=== PATIENT | male | born 1955 | race Caucasian/White ===

== ENCOUNTER 2017-04-14 07:02 | Emergency (ER) | payer OTHER, BC ==
[2017-04-14] MEDS ORDERED: Lidocaine 1% with EPINEPHrine 1:100,000 20 ML MDV INFILT ONE (07:03)
[2017-04-14] MEDS ORDERED: Iopamidol 755 Mg/ML 75 ML Bottle IV ONE (08:52)
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
[2017-04-14 13:51] VITALS: BP 153/68
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
== END 2017-04-14 13:24 | disposition home or self-care (01) ==
LOC: FB.ED 07:02
DX: S06.0X0A Concussion without loss of consciousness, initial encounter (principal); S22.32XA Fracture of one rib, left side, initial encounter for closed fracture; S12.401A Unspecified nondisplaced fracture of fifth cervical vertebra, initial encounter for closed fracture; S12.500A Unspecified displaced fracture of sixth cervical vertebra, initial encounter for closed fracture; S01.81XA Laceration without foreign body of other part of head, initial encounter; I25.2 Old myocardial infarction; F17.210 Nicotine dependence, cigarettes, uncomplicated; Z79.02 Long term (current) use of antithrombotics/antiplatelets; Z79.899 Other long term (current) drug therapy; Z95.5 Presence of coronary angioplasty implant and graft; V89.2XXA Person injured in unspecified motor-vehicle accident, traffic, initial encounter; Y92.410 Unspecified street and highway as the place of occurrence of the external cause
CPT/HCPCS: 12013; 36415; 70450; 70498; 71020; 71101; 72125; 80053; 80305; 81001; 82150; 84443; 84484; 85025; 85610; 99284; G0480; Q9967

== ENCOUNTER 2021-01-18 21:57 | Emergency (ER) | payer BC, MEDICARE, OTHER ==
--- NOTE | 2021-01-18 22:27 | EDM.PDOC ---
ED HPI GENERAL MEDICAL PROBLEM - General Time Seen by Provider: 01/18/21 22:24 Source of Information: Reports: Patient History Limitations: Reports: No Limitations - History of Present Illness INITIAL COMMENTS - FREE TEXT/NARRATIVE: Joseluis complains of difficulty breathing tonight while cooking tonight.Lasted wa few minutes,but associated with dizziness. he has had chest pain previously but not tonight. Lissett Sidhu- HAYDER at [facility] has been following him,and had a stress test last week. He is a smoker.He dies cough or chest pain - Related Data Allergies Allergy/AdvReac Type Severity Reaction Status Date / Time No Known Allergies Allergy Verified 01/18/21 23:00 Home Meds: Home Meds Acetaminophen with Codeine [Tylenol with Codeine #3 Tablet] 1 each PO Q6HR #12 tablet 04/14/17 [Rx] Citalopram [Citalopram HBr] 20 mg PO DAILY 04/14/17 [History] Clopidogrel [Plavix] 75 mg PO DAILY 04/14/17 [History] Metoprolol Tartrate 25 mg PO BID 04/14/17 [History] atorvaSTATin [Lipitor] 80 mg PO BEDTIME 04/14/17 [History] .Vitamin D3 1 tab PO DAILY 01/18/21 [History] Ascorbate Calcium [Vitamin C] 500 mg PO DAILY 01/18/21 [History] Aspirin [Halfprin] 81 mg PO DAILY 01/18/21 [History] Diclofenac Sodium [Voltaren 1% Gel] 1 applic TOP TID 01/18/21 [History] Multivitamin 1 tab PO DAILY 01/18/21 [History] Nitroglycerin 0.4 mg SL ASDIRECTED PRN 01/18/21 [History] lisinopriL [Lisinopril] 10 mg PO DAILY 01/18/21 [History] Past Medical History HEENT History: Reports: Impaired Vision Other HEENT History: wears glasses Cardiovascular History: Reports: High Cholesterol, Hypertension, [place], Stents Gastrointestinal History: Reports: None Psychiatric History: Reports: Anxiety, Depression - Infectious Disease History Infectious Disease History: Reports: Chicken Pox, Mumps - Past Surgical History HEENT Surgical History: Reports: Cataract Surgery Cardiovascular Surgical History: Reports: None GI Surgical History: Reports: Colonoscopy Dermatological Surgical History: Reports: None Social & Family History - Family History Family Medical History: No Pertinent Family History - Caffeine Use Caffeine Use: Reports: Coffee, Soda ED ROS GENERAL - Review of Systems Review Of Systems: Comprehensive ROS is negative, except as noted in HPI. ED EXAM, GENERAL - Physical Exam Exam: See Below Exam Limited By: No Limitations General Appearance: Alert, WD/WN Ears: Normal External Exam Nose: Normal Inspection Throat/Mouth: Normal Inspection Head: Atraumatic Neck: Normal Inspection Respiratory/Chest: No Respiratory Distress, Lungs Clear Cardiovascular: Normal Peripheral Pulses GI/Abdominal: Normal Bowel Sounds, Soft Neurological: Alert, Oriented #1 Interpretation EKG Date: 01/18/21 Time: 22:02 Rhythm: NSR Rate (Beats/Min): 56 [place]: Normal P-Wave: Present QRS: Normal Course - Vital Signs Last Recorded V/S: Last Vital Signs Temp 97.7 F 01/18/21 22:10 Pulse 63 01/18/21 22:10 Resp 14 01/18/21 22:10 BP 128/74 01/18/21 22:10 Pulse Ox 97 01/18/21 22:10 - Orders/Labs/Meds Orders: Active Orders 24 hr Category Date Time Status EKG Documentation Completion [RC] ASDIRECTED Care 01/18/21 22:20 Active Chest 1V Frontal [CR] Stat Exams 01/18/21 22:20 Taken EKG 12 Lead [EK] Routine Ther 01/18/21 22:20 Ordered Labs: Laboratory Tests 01/18/21 01/18/21 01/18/21 Range/Units 22:20 22:20 22:20 WBC 10.6 H (3.2-10.1) x10-3/uL RBC 4.66 (3.90-5.90) x10(6)uL Hgb 15.6 (12.9-17.7) g/dL Hct 46.0 (38.3-50.1) % MCV 98.7 (80.8-98.7) fL MCH 33.4 H (27.0-33.3) pg MCHC 33.9 (28.7-35.3) g/dL RDW 13.0 (12.4-15.0) % Plt Count 199 (117-477) x10(3)uL MPV 7.0 (6.7-11.0) fL Neut % (Auto) 78.3 H (40.3-71.8) % Lymph % (Auto) 10.9 L (15.8-45.3) % Harlan % (Auto) 8.7 (5.5-15.2) % Eos % (Auto) 1.8 (0.1-6.8) % Baso % (Auto) 0.3 (0.3-3.8) % Neut # (Auto) 8.3 H (1.7-6.9) x10-3/uL Lymph # (Auto) 1.2 (0.5-4.5) x10-3/uL Harlan # (Auto) 0.9 (0.0-1.2) x10-3/uL Eos # (Auto) 0.2 (0.0-0.6) x10-3/uL Baso # (Auto) 0.0 (0.0-0.3) x10-3/uL D-Dimer, Quantitative 0.42 (0.0-0.59) mg/LFEU Sodium 133 L (135-145) mmol/L Potassium 3.2 L (3.5-5.3) mmol/L Chloride 98 L (100-110) mmol/L Carbon Dioxide 18 L (21-32) mmol/L BUN 9 (7-18) mg/dL Creatinine 0.8 (0.70-1.30) mg/dL Est Cr Clr Drug Dosing 80.86 mL/min Estimated GFR (MDRD) > 60 (>60) BUN/Creatinine Ratio 11.3 (9-20) Glucose 78 L (80-116) mg/dL Calcium 8.3 L (8.6-10.2) mg/dL Total Bilirubin 0.6 (0.1-1.3) mg/dL AST 29 H (5-25) IU/L ALT 41 H (12-36) U/L Alkaline Phosphatase 68 (56-112) IU/L Troponin I (4.0-60.3) pg/mL Total Protein 6.7 (6.0-8.0) g/dL Albumin 3.5 (3.2-4.6) g/dL Globulin 3.2 g/dL Albumin/Globulin Ratio 1.1 07/05/ Range/Units 22:20 WBC (3.2-10.1) x10-3/uL RBC (3.90-5.90) x10(6)uL Hgb (12.9-17.7) g/dL Hct (38.3-50.1) % MCV (80.8-98.7) fL MCH (27.0-33.3) pg MCHC (28.7-35.3) g/dL RDW (12.4-15.0) % Plt Count (117-477) x10(3)uL MPV (6.7-11.0) fL Neut % (Auto) (40.3-71.8) % Lymph % (Auto) (15.8-45.3) % Harlan % (Auto) (5.5-15.2) % Eos % (Auto) (0.1-6.8) % Baso % (Auto) (0.3-3.8) % Neut # (Auto) (1.7-6.9) x10-3/uL Lymph # (Auto) (0.5-4.5) x10-3/uL Harlan # (Auto) (0.0-1.2) x10-3/uL Eos # (Auto) (0.0-0.6) x10-3/uL Baso # (Auto) (0.0-0.3) x10-3/uL D-Dimer, Quantitative (0.0-0.59) mg/LFEU Sodium (135-145) mmol/L Potassium (3.5-5.3) mmol/L Chloride (100-110) mmol/L Carbon Dioxide (21-32) mmol/L BUN (7-18) mg/dL Creatinine (0.70-1.30) mg/dL Est Cr Clr Drug Dosing mL/min Estimated GFR (MDRD) (>60) BUN/Creatinine Ratio (9-20) Glucose (80-116) mg/dL Calcium (8.6-10.2) mg/dL Total Bilirubin (0.1-1.3) mg/dL AST (5-25) IU/L ALT (12-36) U/L Alkaline Phosphatase (56-112) IU/L Troponin I 9.0 (4.0-60.3) pg/mL Total Protein (6.0-8.0) g/dL Albumin (3.2-4.6) g/dL Globulin g/dL Albumin/Globulin Ratio Departure - Departure Time of Disposition: 23:34 Disposition: Home, Self-Care 01 Clinical Impression: SOB (shortness of breath) Instructions: Rehydration, Adult Referrals: PCP,None [Primary Care Provider] - 2 Days Forms: ED Department Discharge Sepsis Event Note (ED) - Focused Exam Vital Signs: Vital Signs Temp Pulse Resp BP Pulse Ox 01/18/21 22:10 97.7 F 63 14 128/74 97 - Problem List & Annotations (1) SOB (shortness of breath) SNOMED Code(s): 232681505 Code(s): R06.02 - SHORTNESS OF BREATH Status: Acute Current Visit: No (2) Dehydration SNOMED Code(s): 28762455 Code(s): E86.0 - DEHYDRATION Status: Acute Current Visit: Yes (3) Tobacco abuse SNOMED Code(s): 793854286 Code(s): Z72.0 - TOBACCO USE Status: Acute Current Visit: Yes - Problem List Review Problem List Initiated/Reviewed/Updated: Yes - My Orders Last 24 Hours: My Active Orders 01/18/21 22:20 EKG Documentation Completion [RC] ASDIRECTED Chest 1V Frontal [CR] Stat EKG 12 Lead [EK] Routine - Assessment/Plan Last 24 Hours: My Active Orders 01/18/21 22:20 EKG Documentation Completion [RC] ASDIRECTED Chest 1V Frontal [CR] Stat EKG 12 Lead [EK] Routine Plan: He had mild dehydration. Push fluids. Quit tobacco. Return PRN
[2021-01-19 02:09] VITALS: BP 147/92; PULSE 66
--- NOTE | 2021-01-19 17:33 | CR ---
INDICATION: Short of breath. CHEST ONE-VIEW 80728: AP upright portable view of the chest was obtained 01/18/21 and compared with 04/14/17. Overlying EKG leads are noted. The heart is normal in size and shape. The aorta is tortuous. Pulmonary markings are similar to the previous study, without a definite active infiltrate or effusion. Slightly increased flattening of diaphragm leaf, especially on the left, and mild hyperaeration raise question of COPD - correlate clinically. IMPRESSION: 1. No definite acute process. 2. Possible COPD - correlate clinically. 3. ASD aorta. MTDD
== END 2021-01-18 23:55 | disposition home or self-care (01) ==
LOC: FB.ED 21:57
DX: R06.02 Shortness of breath (principal); E78.00 Pure hypercholesterolemia, unspecified; I10 Essential (primary) hypertension; I25.2 Old myocardial infarction; Z95.5 Presence of coronary angioplasty implant and graft; Z79.82 Long term (current) use of aspirin; Z79.02 Long term (current) use of antithrombotics/antiplatelets
CPT/HCPCS: 36415; 71045; 80053; 84484; 85025; 85379; 93005; 99285-25